=== PATIENT | male | born 1970 | race Caucasian/White ===

== ENCOUNTER 2024-02-23 18:08 | Inpatient (IN) | payer OTHER ==
[2024-02-23] MEDS ORDERED: ACETAMINOPHEN INJECTION 100 ML IVPB ONE (19:32)
[2024-02-23 19:38] LABS: VENOUS BASE EXCESS -5.7 mmol/L (-2-2); VENOUS PCO2 30.9 mmHg (38-52); VENOUS PH 7.393 (7.310-7.410)
[2024-02-23] MEDS: SODIUM CHLORIDE 0.9% 1000 ML INFUS.BAG IV STA (19:39)
[2024-02-23] MEDS: ACETAMINOPHEN 1000 MG/100 ML BAG IVPB ONE (19:47)
[2024-02-23 19:51] LABS: HEMATOCRIT 24.6 % (35.4-49); HEMOGLOBIN 8.2 GM/dL (11.7-16.9); MCH 36.9 pg (25.7-33.7); MCHC 33.4 g/dl (32.0-35.9); MEAN CELL VOLUME 110.4 fl (80-96); MEAN PLT VOLUME 6.3 fl (7.5-11.1); PLATELET COUNT 156 10^3/uL (134-434); RBC 2.23 M/mm3 (4.00-5.60); RDW 16.3 % (11.9-15.9)
[2024-02-23 19:55] LABS: ADD RBC MORPHOLOGY YES
[2024-02-23 19:57] LABS: WHITE BLOOD COUNT 1.5 K/mm3 (4.0-10.0)
[2024-02-23 20:03] LABS: CALCIUM 7.6 mg/dL (8.5-10.1)
[2024-02-23 20:04] LABS: ALBUMIN 2.6 g/dl (3.4-5.0); BLOOD UREA NITROGEN 26.1 mg/dL (7-18)
[2024-02-23 20:07] LABS: CREATININE 2.3 mg/dL (0.55-1.3)
[2024-02-23 20:08] LABS: BILIRUBIN,TOTAL 0.6 mg/dL (0.2-1)
[2024-02-23 20:10] LABS: TOT PROT 5.3 g/dl (6.4-8.2)
[2024-02-23 20:13] LABS: LACTIC ACID 2.8 mmol/L (0.4-2.0)
[2024-02-23] MEDS ORDERED: PIPERACILLIN/TAZOB 4.5 GM 4.5 GM/100 ML BAG IVPB ONE (20:54)
[2024-02-23] MEDS: PIPERACILLIN/TAZOB 4.5 GM 4.5 GM in DEXTROSE 5%-WATER 100 ML IVPB ONE (21:00)
[2024-02-23] MEDS: SODIUM CHLORIDE 0.9% 1000 ML INFUS.BAG IV ONE (21:05)
[2024-02-23 21:40] LABS: ANISOCYTOSIS 1+; MACROCYTOSIS 2+; OVALOCYTE 1+; TEAR DROP CELLS 1+
[2024-02-23 21:44] LABS: TOXIC GRANULATION 1+
[2024-02-23] MEDS ORDERED: HEPARIN NA (PORCINE) 5,000 UNITS/ML 1ML VIAL ONE (22:33)
[2024-02-23] MEDS: HEPARIN NA (PORCINE) 5,000 UNITS/ML 1ML VIAL SQ SCH (22:48)
[2024-02-23 22:59] LABS: HEMATOCRIT 21.6 % (35.4-49); HEMOGLOBIN 7.1 GM/dL (11.7-16.9); MCH 36.4 pg (25.7-33.7); MCHC 33.1 g/dl (32.0-35.9); MEAN PLT VOLUME 7.1 fl (7.5-11.1); PLATELET COUNT 148 10^3/uL (134-434); RBC 1.96 M/mm3 (4.00-5.60); RDW 16.4 % (11.9-15.9)
[2024-02-23] MEDS: CHLORHEXIDINE GLUCONATE 4% CLEANSER FOR DECOLONIZATION TP SCH (23:00)
[2024-02-23] MEDS: MUPIROCIN 2% TOPICAL OINTMENT FOR DECOLONIZATION NS SCH (23:00)
[2024-02-23 23:22] VITALS: BMI 20.9
[2024-02-23 23:52] LABS: ANISOCYTOSIS 1+; MACROCYTOSIS 2+; OVALOCYTE 1+; TEAR DROP CELLS 1+; TOXIC GRANULATION 1+
[2024-02-24 01:44] LABS: URINE APPEARANCE CLEAR; URINE BILIRUBIN NEGATIVE (NEGATIVE); URINE COLOR YELLOW; URINE GLUCOSE (UA) NEGATIVE (NEGATIVE); URINE KETONE NEGATIVE (NEGATIVE); URINE LEUK ESTERASE NEGATIVE (NEGATIVE); URINE NITRITE NEGATIVE (NEGATIVE); URINE PROTEIN NEGATIVE (NEGATIVE); URINE UROBILINOGEN 0.2 mg/dL (0.2-1.0)
[2024-02-24] MEDS: LACTATED RINGERS SOLUTION 1,000 ML/1,000 ML INFUS.BAG IV ONE (03:38)
[2024-02-24] MEDS: PANTOPRAZOLE SODIUM 40 MG VIAL IVPUSH SCH (03:38)
[2024-02-24] MEDS: PIPERACILLIN/TAZOB 4.5 GM 4.5 GM in DEXTROSE 5%-WATER 100 ML IVPB SCH ×2 (05:51→17:51)
[2024-02-24] MEDS: ONDANSETRON 4 MG/2 ML VIAL IVPUSH PRN (06:03)
[2024-02-24 06:26] LABS: EPI CELLS 0.8 /uL (0-25.1); HYALINE CASTS 0.14 /uL (0-3.1); URINE BACTERIA 0.9 /uL (0-1359); URINE RBC 2.7 /uL (0-23.9); URINE WBC 2 /uL (0-25.8)
[2024-02-24 07:45] LABS: HEMATOCRIT 21.1 % (35.4-49); HEMOGLOBIN 7.1 GM/dL (11.7-16.9); MCHC 33.7 g/dl (32.0-35.9); MEAN CELL VOLUME 109.8 fl (80-96); MEAN PLT VOLUME 6.5 fl (7.5-11.1); PLATELET COUNT 130 10^3/uL (134-434); RBC 1.92 M/mm3 (4.00-5.60)
[2024-02-24 07:52] LABS: POTASSIUM 4.2 mmol/L (3.5-5.1)
[2024-02-24 07:53] LABS: CALCIUM 7.2 mg/dL (8.5-10.1); WHITE BLOOD COUNT 1.5 K/mm3 (4.0-10.0)
[2024-02-24 07:54] LABS: BLOOD UREA NITROGEN 21.6 mg/dL (7-18); MAGNESIUM 1.4 mg/dL (1.8-2.4)
[2024-02-24 07:57] LABS: CREATININE 1.9 mg/dL (0.55-1.3); PHOSPHOROUS 2.1 mg/dL (2.5-4.9)
[2024-02-24 07:59] LABS: BILIRUBIN,TOTAL 0.5 mg/dL (0.2-1); TOT PROT 4.6 g/dl (6.4-8.2)
[2024-02-24 08:07] LABS: ALBUMIN 2.1 g/dl (3.4-5.0)
[2024-02-24] MEDS: LACTATED RINGERS SOLUTION 1,000 ML/1,000 ML INFUS.BAG IV SCH (08:12)
[2024-02-24 08:44] LABS: ANISOCYTOSIS 1+; MACROCYTOSIS 1+
[2024-02-24] MEDS: LACTATED RINGERS SOLUTION 1000 ML INFUS.BAG IV ONE ×2 (10:37→14:17)
[2024-02-24] MEDS: ACETAMINOPHEN 1000 MG/100 ML BAG IVPB PRN (10:43)
[2024-02-24] MEDS: MAGNESIUM SULF 50% (8.12 MEQ/2 ML-1 GM VIAL) IVPB ONE (13:05)
[2024-02-24] MEDS: POTASSIUM PHOSPHATE 30 MM in DEXTROSE 5%-WATER - 500 ML IVPB ONE (13:10)
[2024-02-24] MEDS: LEVOTHYROXINE NA 25 MCG TABLET (FP) PO SCH (13:37)
[2024-02-24] MEDS: CALCITRIOL 0.25 MCG CAPSULE (FP) PO SCH (13:37)
[2024-02-24] MEDS: FOLIC ACID 1 MG TABLET (FP) PO SCH (13:37)
[2024-02-24] MEDS: SODIUM BICARBONATE 325 MG TABLET PO SCH (14:39)
[2024-02-24] MEDS: azaTHIOprine 50 MG TABLET PO SCH ×2 (14:39→14:46)
[2024-02-24] MEDS: predniSONE 5 MG TABLET (UD) PO SCH (14:48)
[2024-02-24 15:17] LABS: BASO % 0.2 % (0-2.0); EOS % 1.5 % (0-4.5); HEMATOCRIT 19.8 % (35.4-49); MCH 36.8 pg (25.7-33.7); MCHC 32.9 g/dl (32.0-35.9); MEAN CELL VOLUME 111.8 fl (80-96); MEAN PLT VOLUME 6.4 fl (7.5-11.1); MONO % 15.9 % (3.8-10.2); NEUT % 60.4 % (42.8-82.8); PLATELET COUNT 122 10^3/uL (134-434); RBC 1.77 M/mm3 (4.00-5.60); RDW 17.1 % (11.9-15.9)
[2024-02-24 15:21] LABS: WHITE BLOOD COUNT 1.6 K/mm3 (4.0-10.0)
[2024-02-24 15:22] LABS: HEMOGLOBIN 6.5 GM/dL (11.7-16.9)
[2024-02-24 16:16] LABS: ANISOCYTOSIS 0; MACROCYTOSIS 3+
[2024-02-24] MEDS: ACETAMINOPHEN 325 MG TABLET (FP) PO PRN (17:43)
[2024-02-24] MEDS: AMINO ACIDS 4.25%/D5W 1,000 ML IV SCH (23:25)
[2024-02-25 06:38] LABS: BASO % 0.3 % (0-2.0); EOS % 1.5 % (0-4.5); HEMATOCRIT 28.4 % (35.4-49); HEMOGLOBIN 9.6 GM/dL (11.7-16.9); LYMPH % 17.5 % (8-40); MCHC 33.9 g/dl (32.0-35.9); MEAN PLT VOLUME 6.4 fl (7.5-11.1); NEUT % 64.7 % (42.8-82.8); PLATELET COUNT 140 10^3/uL (134-434); RBC 2.83 M/mm3 (4.00-5.60); RDW 22.8 % (11.9-15.9)
[2024-02-25 06:56] LABS: MEAN CELL VOLUME 100.3 fl (80-96)
[2024-02-25 07:28] LABS: POTASSIUM 4.2 mmol/L (3.5-5.1)
[2024-02-25 07:32] LABS: CALCIUM 7.8 mg/dL (8.5-10.1)
[2024-02-25 07:33] LABS: ALBUMIN 2.1 g/dl (3.4-5.0); BLOOD UREA NITROGEN 18.6 mg/dL (7-18); MAGNESIUM 2.2 mg/dL (1.8-2.4)
[2024-02-25 07:35] LABS: CREATININE 1.9 mg/dL (0.55-1.3)
[2024-02-25 07:36] LABS: PHOSPHOROUS 3.2 mg/dL (2.5-4.9)
[2024-02-25 07:37] LABS: BILIRUBIN,TOTAL 1.8 mg/dL (0.2-1); TOT PROT 4.6 g/dl (6.4-8.2)
[2024-02-26 06:57] LABS: POTASSIUM 4.1 mmol/L (3.5-5.1)
[2024-02-26 07:03] LABS: ALBUMIN 2.1 g/dl (3.4-5.0)
[2024-02-26 07:04] LABS: BLOOD UREA NITROGEN 22.8 mg/dL (7-18); MAGNESIUM 1.7 mg/dL (1.8-2.4)
[2024-02-26 07:07] LABS: CREATININE 1.8 mg/dL (0.55-1.3)
[2024-02-26 07:08] LABS: BILIRUBIN,TOTAL 0.7 mg/dL (0.2-1)
[2024-02-26 07:37] LABS: BASO % 0.2 % (0-2.0); EOS % 3.5 % (0-4.5); HEMATOCRIT 29.6 % (35.4-49); HEMOGLOBIN 9.9 GM/dL (11.7-16.9); LYMPH % 28.7 % (8-40); MCHC 33.6 g/dl (32.0-35.9); MEAN PLT VOLUME 6.7 fl (7.5-11.1); MONO % 16.8 % (3.8-10.2); NEUT % 50.8 % (42.8-82.8); PLATELET COUNT 157 10^3/uL (134-434); RBC 2.93 M/mm3 (4.00-5.60); RDW 23.5 % (11.9-15.9); WHITE BLOOD COUNT 2.8 K/mm3 (4.0-10.0)
[2024-02-26] MEDS: MAGNESIUM 2GM/50ML STERILE WATER IVPB IVPB ONE (14:20)
[2024-02-27 07:22] LABS: BASO % 0.3 % (0-2.0); HEMATOCRIT 30.2 % (35.4-49); HEMOGLOBIN 10.1 GM/dL (11.7-16.9); LYMPH % 35.5 % (8-40); MCHC 33.3 g/dl (32.0-35.9); MEAN CELL VOLUME 102.1 fl (80-96); MEAN PLT VOLUME 7.3 fl (7.5-11.1); MONO % 18.6 % (3.8-10.2); NEUT % 42.6 % (42.8-82.8); PLATELET COUNT 169 10^3/uL (134-434); RBC 2.96 M/mm3 (4.00-5.60); RDW 23.8 % (11.9-15.9); WHITE BLOOD COUNT 2.3 K/mm3 (4.0-10.0)
[2024-02-27 07:32] LABS: POTASSIUM 3.9 mmol/L (3.5-5.1)
[2024-02-27 07:42] LABS: ALBUMIN 2.2 g/dl (3.4-5.0); CALCIUM 8.4 mg/dL (8.5-10.1)
[2024-02-27 07:46] LABS: CREATININE 1.8 mg/dL (0.55-1.3)
[2024-02-27 07:47] LABS: BILIRUBIN,TOTAL 0.5 mg/dL (0.2-1); TOT PROT 5.1 g/dl (6.4-8.2)
[2024-02-27 09:41] LABS: ANISOCYTOSIS 0; MACROCYTOSIS 0; OVALOCYTE 1+
[2024-02-28] MEDS ORDERED: ACETAMINOPHEN 325 MG TABLET (FP) PO PRN (02:15)
[2024-02-28] MEDS: LEVOTHYROXINE NA 25 MCG TABLET (FP) PO SCH (06:21)
[2024-02-28 07:29] LABS: BASO % 0.5 % (0-2.0); EOS % 2.5 % (0-4.5); HEMATOCRIT 30.5 % (35.4-49); HEMOGLOBIN 10.3 GM/dL (11.7-16.9); LYMPH % 32.1 % (8-40); MCHC 33.6 g/dl (32.0-35.9); MEAN CELL VOLUME 101.3 fl (80-96); MEAN PLT VOLUME 6.7 fl (7.5-11.1); MONO % 17.1 % (3.8-10.2); NEUT % 47.8 % (42.8-82.8); PLATELET COUNT 174 10^3/uL (134-434); RBC 3.01 M/mm3 (4.00-5.60); RDW 22.8 % (11.9-15.9); WHITE BLOOD COUNT 3.3 K/mm3 (4.0-10.0)
[2024-02-28 07:50] LABS: POTASSIUM 4.4 mmol/L (3.5-5.1)
[2024-02-28 07:56] LABS: ALBUMIN 2.4 g/dl (3.4-5.0); BLOOD UREA NITROGEN 14.4 mg/dL (7-18); MAGNESIUM 1.7 mg/dL (1.8-2.4)
[2024-02-28 07:59] LABS: CREATININE 2.1 mg/dL (0.55-1.3)
[2024-02-28 08:00] LABS: BILIRUBIN,TOTAL 0.6 mg/dL (0.2-1)
[2024-02-28 08:01] LABS: TOT PROT 5.4 g/dl (6.4-8.2)
[2024-02-28] MEDS: CALCITRIOL 0.25 MCG CAPSULE (FP) PO SCH (09:04)
[2024-02-28] MEDS: SODIUM BICARBONATE 325 MG TABLET PO SCH (09:05)
[2024-02-28] MEDS: FOLIC ACID 1 MG TABLET (FP) PO SCH (09:05)
[2024-02-28] MEDS: PIPERACILLIN/TAZOB 4.5 GM 4.5 GM in DEXTROSE 5%-WATER 100 ML IVPB SCH (09:05)
[2024-02-28] MEDS: predniSONE 5 MG TABLET (UD) PO SCH (09:05)
[2024-02-28] MEDS: MUPIROCIN 2% TOPICAL OINTMENT FOR DECOLONIZATION NS SCH (09:08)
[2024-02-28] MEDS: SODIUM CHLORIDE 0.45% 1,000 ML IV SCH (16:00)
[2024-02-28] MEDS: CHLORHEXIDINE GLUCONATE 4% CLEANSER FOR DECOLONIZATION TP SCH (23:00)
[2024-02-29 07:36] LABS: POTASSIUM 4.1 mmol/L (3.5-5.1)
[2024-02-29 07:39] LABS: CALCIUM 9.4 mg/dL (8.5-10.1)
[2024-02-29 07:40] LABS: ALBUMIN 2.5 g/dl (3.4-5.0); BLOOD UREA NITROGEN 11.9 mg/dL (7-18)
[2024-02-29 07:43] LABS: CREATININE 1.8 mg/dL (0.55-1.3)
[2024-02-29 07:44] LABS: TOT PROT 5.4 g/dl (6.4-8.2)
[2024-02-29 07:45] LABS: BILIRUBIN,TOTAL 0.3 mg/dL (0.2-1)
[2024-03-01 07:18] LABS: BASO % 0.5 % (0-2.0); EOS % 1.4 % (0-4.5); HEMATOCRIT 27.7 % (35.4-49); HEMOGLOBIN 9.6 GM/dL (11.7-16.9); LYMPH % 22.7 % (8-40); MCH 34.5 pg (25.7-33.7); MCHC 34.6 g/dl (32.0-35.9); MEAN CELL VOLUME 99.8 fl (80-96); MEAN PLT VOLUME 7.1 fl (7.5-11.1); NEUT % 61.4 % (42.8-82.8); PLATELET COUNT 169 10^3/uL (134-434); RBC 2.78 M/mm3 (4.00-5.60); RDW 20.7 % (11.9-15.9); WHITE BLOOD COUNT 5.3 K/mm3 (4.0-10.0)
[2024-03-01 07:27] LABS: CALCIUM 9.1 mg/dL (8.5-10.1)
[2024-03-01 07:28] LABS: ALBUMIN 2.2 g/dl (3.4-5.0); BLOOD UREA NITROGEN 12.5 mg/dL (7-18)
[2024-03-01 07:31] LABS: CREATININE 1.5 mg/dL (0.55-1.3)
[2024-03-01 07:32] LABS: BILIRUBIN,TOTAL 0.4 mg/dL (0.2-1); TOT PROT 5.1 g/dl (6.4-8.2)
[2024-03-01 16:11] VITALS: BP 115/69; PULSE 64; RESP 17; TEMP 98.2
== END 2024-03-01 18:20 | disposition home or self-care (01) | DRG 720 ==
LOC: JER 18:08 → JERBED 19:37 → JICU 23:09 → J2W 02-27 23:36
PROVIDERS: ADMIT Internal Medicine; ATTEND Internal Medicine
PROC: 30233N1 Transfusion of Nonautologous Red Blood Cells into Peripheral Vein, Percutaneous Approach (ICD-10-PCS; principal; 2024-02-24)
DX: A41.89 Other specified sepsis (principal); N17.9 Acute kidney failure, unspecified; K50.90 Crohn's disease, unspecified, without complications; E03.9 Hypothyroidism, unspecified; K92.1 Melena; R50.9 Fever, unspecified; R00.0 Tachycardia, unspecified; D72.819 Decreased white blood cell count, unspecified; A09 Infectious gastroenteritis and colitis, unspecified; D64.9 Anemia, unspecified; N18.9 Chronic kidney disease, unspecified
CPT/HCPCS: 0241U-QW; 36415; 36430; 71045-TC-FY; 76775-TC; 80053; 81003; 82272; 82308; 82542; 82803; 83605; 83735; 84100; 84484; 85025; 85730; 86140; 86480; 86644; 86645; 86850; 86900; 86901; 86922; 87040; 87045; 87046; 87086; 87207; 87324; 87328; 87329; 87449; 93005; 93010; 99291; G0480; J0131; J1644; P9038; P9058

== ENCOUNTER 2024-03-15 14:29 | Inpatient (IN) | payer OTHER ==
[2024-03-15 14:43] VITALS: BMI 21.1
[2024-03-15 16:46] LABS: BASO % 0.4 % (0-2.0); EOS % 0.7 % (0-4.5); HEMATOCRIT 26.5 % (35.4-49); HEMOGLOBIN 8.8 GM/dL (11.7-16.9); LYMPH % 21.4 % (8-40); MCH 34.6 pg (25.7-33.7); MCHC 33.1 g/dl (32.0-35.9); MEAN CELL VOLUME 104.7 fl (80-96); MEAN PLT VOLUME 7.2 fl (7.5-11.1); MONO % 11.7 % (3.8-10.2); NEUT % 65.8 % (42.8-82.8); PLATELET COUNT 159 10^3/uL (134-434); RBC 2.54 M/mm3 (4.00-5.60); RDW 20.7 % (11.9-15.9); WHITE BLOOD COUNT 3.9 K/mm3 (4.0-10.0)
[2024-03-15 17:11] LABS: POTASSIUM 4.2 mmol/L (3.5-5.1)
[2024-03-15 17:14] LABS: BLOOD UREA NITROGEN 16.9 mg/dL (7-18); CALCIUM 8.3 mg/dL (8.5-10.1)
[2024-03-15 17:15] LABS: ALBUMIN 2.9 g/dl (3.4-5.0)
[2024-03-15 17:18] LABS: BILIRUBIN,TOTAL 0.3 mg/dL (0.2-1); CREATININE 1.9 mg/dL (0.55-1.3); TOT PROT 6.5 g/dl (6.4-8.2)
[2024-03-15] MEDS ORDERED: ACETAMINOPHEN INJECTION 100 ML IVPB ONE (17:53)
[2024-03-15] MEDS: ACETAMINOPHEN 1000 MG/100 ML BAG IVPB ONE (18:16)
[2024-03-15] MEDS: SODIUM CHLORIDE 0.9% 500 ML INFUS.BAG IV ONE (18:16)
[2024-03-15 18:47] LABS: INR 1.18 (0.83-1.09); PROTHROMBIN TIME (PATIENT) 13.3 SEC (9.7-13.0)
[2024-03-15 18:50] LABS: ACTIVATED PTT 27.5 SECONDS (25.2-36.5)
[2024-03-15 19:05] LABS: ANISOCYTOSIS 2+; MACROCYTOSIS 1+; OVALOCYTE 1+
[2024-03-15] MEDS ORDERED: ACETAMINOPHEN 325 MG TABLET (FP) PO PRN (20:34)
[2024-03-16 01:26] LABS: HEMATOCRIT 25.4 % (35.4-49); HEMOGLOBIN 8.4 GM/dL (11.7-16.9); MCH 33.5 pg (25.7-33.7); MCHC 32.9 g/dl (32.0-35.9); MEAN CELL VOLUME 101.8 fl (80-96); MEAN PLT VOLUME 6.3 fl (7.5-11.1); PLATELET COUNT 107 10^3/uL (134-434); WHITE BLOOD COUNT 3.3 K/mm3 (4.0-10.0)
[2024-03-16] MEDS: SODIUM CHLORIDE 0.45% 1,000 ML IV SCH (03:00)
[2024-03-16 04:23] LABS: BASO % 1.1 % (0-2.0); EOS % 2.3 % (0-4.5); HEMATOCRIT 24.9 % (35.4-49); HEMOGLOBIN 8.3 GM/dL (11.7-16.9); LYMPH % 23.8 % (8-40); MCH 33.8 pg (25.7-33.7); MCHC 33.5 g/dl (32.0-35.9); MEAN CELL VOLUME 100.8 fl (80-96); MEAN PLT VOLUME 6.6 fl (7.5-11.1); MONO % 12.8 % (3.8-10.2); PLATELET COUNT 115 10^3/uL (134-434); RBC 2.47 M/mm3 (4.00-5.60)
[2024-03-16 06:24] LABS: BASO % 0.3 % (0-2.0); EOS % 2.3 % (0-4.5); HEMATOCRIT 25.5 % (35.4-49); HEMOGLOBIN 8.6 GM/dL (11.7-16.9); LYMPH % 21.6 % (8-40); MCH 33.8 pg (25.7-33.7); MCHC 33.5 g/dl (32.0-35.9); MEAN CELL VOLUME 100.8 fl (80-96); MEAN PLT VOLUME 6.7 fl (7.5-11.1); MONO % 11.1 % (3.8-10.2); NEUT % 64.7 % (42.8-82.8); PLATELET COUNT 110 10^3/uL (134-434); RBC 2.53 M/mm3 (4.00-5.60); RDW 20.1 % (11.9-15.9); WHITE BLOOD COUNT 3.1 K/mm3 (4.0-10.0)
[2024-03-16 06:43] LABS: POTASSIUM 3.8 mmol/L (3.5-5.1)
[2024-03-16 06:46] LABS: BLOOD UREA NITROGEN 14.7 mg/dL (7-18); CALCIUM 7.6 mg/dL (8.5-10.1); MAGNESIUM 1.3 mg/dL (1.8-2.4)
[2024-03-16 06:48] LABS: PHOSPHOROUS 2.3 mg/dL (2.5-4.9)
[2024-03-16 06:50] LABS: CREATININE 1.4 mg/dL (0.55-1.3)
[2024-03-16] MEDS ORDERED: LEVOTHYROXINE NA 25 MCG TABLET (FP) ONE (07:38)
[2024-03-16] MEDS: LEVOTHYROXINE NA 25 MCG TABLET (FP) PO SCH (07:45)
[2024-03-16] MEDS ORDERED: FOLIC ACID 1 MG TABLET (FP) ONE (09:11)
[2024-03-16] MEDS: CALCITRIOL 0.25 MCG CAPSULE (FP) PO SCH (09:17)
[2024-03-16] MEDS: FOLIC ACID 1 MG TABLET (FP) PO SCH (09:17)
[2024-03-16] MEDS: azaTHIOprine 50 MG TABLET PO SCH (09:17)
[2024-03-16] MEDS: predniSONE 5 MG TABLET (UD) PO SCH (09:17)
[2024-03-16] MEDS: SODIUM BICARBONATE 325 MG TABLET PO SCH (10:37)
[2024-03-16] MEDS ORDERED: ACETAMINOPHEN INJECTION 100 ML IVPB ONE (15:27)
[2024-03-16] MEDS: ACETAMINOPHEN 1000 MG/100 ML BAG IVPB PRN (15:30)
[2024-03-17 07:48] LABS: BASO % 0.4 % (0-2.0); EOS % 1.9 % (0-4.5); HEMATOCRIT 28.7 % (35.4-49); HEMOGLOBIN 9.6 GM/dL (11.7-16.9); MCH 34.7 pg (25.7-33.7); MCHC 33.6 g/dl (32.0-35.9); MEAN CELL VOLUME 103.2 fl (80-96); MEAN PLT VOLUME 7.1 fl (7.5-11.1); MONO % 12.6 % (3.8-10.2); NEUT % 61.1 % (42.8-82.8); PLATELET COUNT 115 10^3/uL (134-434); RBC 2.78 M/mm3 (4.00-5.60); RDW 20.6 % (11.9-15.9); WHITE BLOOD COUNT 3.5 K/mm3 (4.0-10.0)
[2024-03-17 07:58] LABS: POTASSIUM 4.3 mmol/L (3.5-5.1)
[2024-03-17 08:02] LABS: ALBUMIN 2.4 g/dl (3.4-5.0); CALCIUM 7.6 mg/dL (8.5-10.1)
[2024-03-17 08:03] LABS: BLOOD UREA NITROGEN 14.1 mg/dL (7-18)
[2024-03-17 08:05] LABS: CREATININE 1.5 mg/dL (0.55-1.3)
[2024-03-17 08:07] LABS: BILIRUBIN,TOTAL 0.8 mg/dL (0.2-1); TOT PROT 5.5 g/dl (6.4-8.2)
[2024-03-17] MEDS ORDERED: ACETAMINOPHEN 1000 MG/100 ML BAG IVPB PRN (15:17)
[2024-03-18 10:53] LABS: HEMATOCRIT 24.1 % (35.4-49); HEMOGLOBIN 8.1 GM/dL (11.7-16.9); MCH 34.3 pg (25.7-33.7); MCHC 33.8 g/dl (32.0-35.9); MEAN CELL VOLUME 101.5 fl (80-96); MEAN PLT VOLUME 6.6 fl (7.5-11.1); PLATELET COUNT 103 10^3/uL (134-434); RBC 2.38 M/mm3 (4.00-5.60); RDW 20.6 % (11.9-15.9)
[2024-03-18 11:00] LABS: WHITE BLOOD COUNT 1.6 K/mm3 (4.0-10.0)
[2024-03-18 11:10] LABS: POTASSIUM 3.6 mmol/L (3.5-5.1)
[2024-03-18 11:12] LABS: ALBUMIN 2.1 g/dl (3.4-5.0); BLOOD UREA NITROGEN 12.8 mg/dL (7-18); CALCIUM 7.4 mg/dL (8.5-10.1); MAGNESIUM 1.5 mg/dL (1.8-2.4)
[2024-03-18 11:15] LABS: CREATININE 1.5 mg/dL (0.55-1.3); PHOSPHOROUS 1.9 mg/dL (2.5-4.9)
[2024-03-18 11:17] LABS: BILIRUBIN,TOTAL 0.4 mg/dL (0.2-1); TOT PROT 4.7 g/dl (6.4-8.2)
[2024-03-18 12:20] LABS: ANISOCYTOSIS 1+; MACROCYTOSIS 1+
[2024-03-18] MEDS: PEGFILGRASTIM (NEULASTA) 6 MG/0.6 ML DISP.SYRIN SQ ONE (15:11)
[2024-03-18] MEDS: MAGNESIUM OXIDE 400 MG TABLET (FP) PO SCH (15:42)
[2024-03-18] MEDS: TBO-FILGRASTIM 300 MCG/0.5 ML DISP.SYRINGE SQ ONE (15:42)
[2024-03-19 08:14] LABS: WHITE BLOOD COUNT 6.4 K/mm3 (4.0-10.0)
[2024-03-19 08:15] LABS: BASO % 0.6 % (0-2.0); EOS % 1.5 % (0-4.5); HEMATOCRIT 30.1 % (35.4-49); HEMOGLOBIN 10.1 GM/dL (11.7-16.9); LYMPH % 17.6 % (8-40); MCH 34.9 pg (25.7-33.7); MCHC 33.6 g/dl (32.0-35.9); MEAN CELL VOLUME 103.8 fl (80-96); MONO % 8.9 % (3.8-10.2); NEUT % 71.4 % (42.8-82.8); PLATELET COUNT 141 10^3/uL (134-434); RDW 21.3 % (11.9-15.9)
[2024-03-19 08:20] LABS: POTASSIUM 3.2 mmol/L (3.5-5.1)
[2024-03-19 08:24] LABS: BLOOD UREA NITROGEN 12.9 mg/dL (7-18); CALCIUM 8.3 mg/dL (8.5-10.1)
[2024-03-19 08:27] LABS: CREATININE 1.7 mg/dL (0.55-1.3)
[2024-03-19 08:30] LABS: BILIRUBIN,TOTAL 0.7 mg/dL (0.2-1); TOT PROT 6.1 g/dl (6.4-8.2)
[2024-03-19 08:34] LABS: ALBUMIN 2.7 g/dl (3.4-5.0)
[2024-03-19] MEDS ORDERED: REGADENOSON 0.4 MG/5 ML PRE-FILLED SYRINGE IVPUSH ONE (09:05)
[2024-03-19 09:28] LABS: ANISOCYTOSIS 0; MACROCYTOSIS 1+; OVALOCYTE 1+
[2024-03-19] MEDS: REGADENOSON 0.4 MG/5 ML PRE-FILLED SYRINGE IVPUSH ONE (10:58)
[2024-03-19] MEDS: POTASSIUM CHLORIDE ORAL LIQUID 20 MEQ/15 ML PO ONE (12:00)
[2024-03-19] MEDS: KCL 10 MEQ IVPB 10 MEQ/100 ML INFUS.BAG IVPB SCH (12:00)
[2024-03-20 08:50] LABS: BASO % 0.3 % (0-2.0); EOS % 2.3 % (0-4.5); HEMATOCRIT 23.7 % (35.4-49); HEMOGLOBIN 7.9 GM/dL (11.7-16.9); LYMPH % 25.7 % (8-40); MCH 33.9 pg (25.7-33.7); MCHC 33.1 g/dl (32.0-35.9); MEAN CELL VOLUME 102.2 fl (80-96); MEAN PLT VOLUME 7.6 fl (7.5-11.1); MONO % 17.6 % (3.8-10.2); NEUT % 54.1 % (42.8-82.8); PLATELET COUNT 106 10^3/uL (134-434); RBC 2.32 M/mm3 (4.00-5.60); RDW 20.4 % (11.9-15.9)
[2024-03-20 09:24] LABS: BLOOD UREA NITROGEN 14.2 mg/dL (7-18); CALCIUM 7.9 mg/dL (8.5-10.1)
[2024-03-20 09:25] LABS: BILIRUBIN,TOTAL 0.3 mg/dL (0.2-1)
[2024-03-20 09:27] LABS: CREATININE 1.5 mg/dL (0.55-1.3)
[2024-03-20 09:29] LABS: ALBUMIN 2.1 g/dl (3.4-5.0)
[2024-03-21 07:52] LABS: BASO % 0.4 % (0-2.0); EOS % 2.5 % (0-4.5); HEMOGLOBIN 9.1 GM/dL (11.7-16.9); LYMPH % 30.4 % (8-40); MCH 33.5 pg (25.7-33.7); MCHC 33.5 g/dl (32.0-35.9); MEAN CELL VOLUME 99.9 fl (80-96); MEAN PLT VOLUME 7.1 fl (7.5-11.1); MONO % 16.1 % (3.8-10.2); NEUT % 50.6 % (42.8-82.8); PLATELET COUNT 113 10^3/uL (134-434); RBC 2.71 M/mm3 (4.00-5.60); RDW 20.4 % (11.9-15.9); WHITE BLOOD COUNT 3.1 K/mm3 (4.0-10.0)
[2024-03-21 08:17] LABS: POTASSIUM 3.8 mmol/L (3.5-5.1)
[2024-03-21 08:25] LABS: CALCIUM 8.3 mg/dL (8.5-10.1)
[2024-03-21 08:26] LABS: ALBUMIN 2.1 g/dl (3.4-5.0); BLOOD UREA NITROGEN 14.1 mg/dL (7-18)
[2024-03-21 08:29] LABS: BILIRUBIN,TOTAL 0.8 mg/dL (0.2-1); CREATININE 1.4 mg/dL (0.55-1.3)
[2024-03-21 08:31] LABS: TOT PROT 5.3 g/dl (6.4-8.2)
[2024-03-22 11:04] VITALS: BP 83/53; PULSE 76; RESP 18; TEMP 98.4
== END 2024-03-22 11:54 | disposition home or self-care (01) | DRG 660 ==
LOC: JER 14:29 → JERBED 20:34 → J4W 03-16 20:11 → OBSVTOIN 03-20 14:49
PROVIDERS: ADMIT Internal Medicine; ATTEND Internal Medicine
PROC: 30233N1 Transfusion of Nonautologous Red Blood Cells into Peripheral Vein, Percutaneous Approach (ICD-10-PCS; principal; 2024-03-21)
DX: D61.818 Other pancytopenia (principal); D64.9 Anemia, unspecified; N17.9 Acute kidney failure, unspecified; E03.9 Hypothyroidism, unspecified; D70.9 Neutropenia, unspecified; K50.90 Crohn's disease, unspecified, without complications; R07.89 Other chest pain; T45.1X5A Adverse effect of antineoplastic and immunosuppressive drugs, initial encounter; N18.9 Chronic kidney disease, unspecified; R42 Dizziness and giddiness; Z86.718 Personal history of other venous thrombosis and embolism
CPT/HCPCS: 36415; 36430; 71045-TC-FY; 78452-TC; 80048; 80053; 82272; 83735; 84100; 84484; 85025; 85027; 85610; 85730; 86850; 86900; 86901; 86922; 93005; 93010; 93017; 93306-TC; 93970-TC; 99285-25; A9502; G0378; J0131; J1447; J2785; P9038; P9058

== ENCOUNTER 2024-05-31 10:35 | Emergency (ER) | payer OTHER ==
[2024-05-31 10:53] VITALS: BMI 21.1
[2024-05-31 12:29] LABS: EOS % 1.4 % (0-4.5); HEMATOCRIT 20.8 % (35.4-49); LYMPH % 26.5 % (8-40); MCH 32.3 pg (25.7-33.7); MCHC 30.1 g/dl (32.0-35.9); MEAN CELL VOLUME 107.6 fl (80-96); MEAN PLT VOLUME 7.2 fl (7.5-11.1); MONO % 18.8 % (3.8-10.2); NEUT % 52.3 % (42.8-82.8); PLATELET COUNT 177 10^3/uL (134-434); RBC 1.94 M/mm3 (4.00-5.60); RDW 17.5 % (11.9-15.9); WHITE BLOOD COUNT 2.3 K/mm3 (4.0-10.0)
[2024-05-31 12:32] LABS: HEMOGLOBIN 6.3 GM/dL (11.7-16.9)
[2024-05-31 12:35] LABS: POTASSIUM 3.6 mmol/L (3.5-5.1)
[2024-05-31 12:37] LABS: CALCIUM 8.2 mg/dL (8.5-10.1)
[2024-05-31 12:38] LABS: ALBUMIN 2.5 g/dl (3.4-5.0)
[2024-05-31 12:40] LABS: CREATININE 1.8 mg/dL (0.55-1.3)
[2024-05-31 12:42] LABS: BILIRUBIN,TOTAL 0.2 mg/dL (0.2-1); TOT PROT 5.9 g/dl (6.4-8.2)
[2024-05-31 12:42] LABS: ACTIVATED PTT 28.4 SECONDS (25.2-36.5); INR 1.17 (0.83-1.09); PROTHROMBIN TIME (PATIENT) 13.4 SEC (9.7-13.0)
[2024-05-31 13:18] LABS: ANISOCYTOSIS 1+; MACROCYTOSIS 1+
[2024-05-31 13:31] LABS: HIV INTERPRETATION NEGATIVE (NEGATIVE)
[2024-05-31 17:19] VITALS: BP 104/74; PULSE 79; RESP 16; TEMP 98.1
== END 2024-05-31 19:21 | disposition home or self-care (01) ==
LOC: JER 10:35
DX: K50.918 Crohn's disease, unspecified, with other complication (principal); D63.8 Anemia in other chronic diseases classified elsewhere
CPT/HCPCS: 36415; 36430; 80053; 83540; 85025; 85610; 85730; 86803; 86850; 86900; 86901; 86922; 87389; 93005; 93010; 99285-25; P9058

== ENCOUNTER 2024-06-25 16:44 | Observation (INO) | payer OTHER ==
[2024-06-25 17:19] VITALS: BMI 20.4
[2024-06-25 18:27] LABS: BASO % 0.4 % (0-2.0); HEMATOCRIT 22.1 % (35.4-49); HEMOGLOBIN 6.7 GM/dL (11.7-16.9); LYMPH % 14.2 % (8-40); MCHC 30.2 g/dl (32.0-35.9); MEAN CELL VOLUME 102.5 fl (80-96); MONO % 12.7 % (3.8-10.2); NEUT % 71.7 % (42.8-82.8); PLATELET COUNT 188 10^3/uL (134-434); RBC 2.16 M/mm3 (4.00-5.60); RDW 19.5 % (11.9-15.9); WHITE BLOOD COUNT 2.7 K/mm3 (4.0-10.0)
[2024-06-25 18:41] LABS: POTASSIUM 4.5 mmol/L (3.5-5.1)
[2024-06-25 18:45] LABS: CALCIUM 8.6 mg/dL (8.5-10.1)
[2024-06-25 18:46] LABS: ALBUMIN 2.5 g/dl (3.4-5.0); BLOOD UREA NITROGEN 18.4 mg/dL (7-18)
[2024-06-25 18:49] LABS: CREATININE 2.2 mg/dL (0.55-1.3)
[2024-06-25 18:50] LABS: BILIRUBIN,TOTAL 0.1 mg/dL (0.2-1)
[2024-06-25 19:00] LABS: INR 1.25 (0.83-1.09); PROTHROMBIN TIME (PATIENT) 14.3 SEC (9.7-13.0)
[2024-06-25 19:37] LABS: HIV INTERPRETATION NEGATIVE (NEGATIVE)
[2024-06-25] MEDS: ACETAMINOPHEN 325 MG TABLET (FP) PO ONE (21:24)
[2024-06-26 07:48] LABS: BASO % 0.5 % (0-2.0); EOS % 1.8 % (0-4.5); HEMOGLOBIN 7.1 GM/dL (11.7-16.9); LYMPH % 21.4 % (8-40); MCH 30.9 pg (25.7-33.7); MEAN CELL VOLUME 99.8 fl (80-96); MEAN PLT VOLUME 7.6 fl (7.5-11.1); MONO % 14.2 % (3.8-10.2); NEUT % 62.1 % (42.8-82.8); PLATELET COUNT 159 10^3/uL (134-434); RBC 2.31 M/mm3 (4.00-5.60); RDW 20.8 % (11.9-15.9)
[2024-06-26] MEDS: LEVOTHYROXINE NA 25 MCG TABLET (FP) PO SCH (08:11)
[2024-06-26 09:05] LABS: BLOOD UREA NITROGEN 20.7 mg/dL (7-18); CALCIUM 8.2 mg/dL (8.5-10.1); POTASSIUM 4.2 mmol/L (3.5-5.1)
[2024-06-26] MEDS: CALCITRIOL 0.25 MCG CAPSULE (FP) PO SCH (09:26)
[2024-06-26 09:33] LABS: ANISOCYTOSIS 1+; MACROCYTOSIS 1+
[2024-06-26] MEDS ORDERED: ACETAMINOPHEN 325 MG TABLET (FP) ONE (12:36)
[2024-06-26] MEDS: ACETAMINOPHEN 325 MG TABLET (FP) PO PRN (12:44)
[2024-06-26 16:11] LABS: MAGNESIUM 1.7 mg/dL (1.8-2.4)
[2024-06-26 16:14] LABS: PHOSPHOROUS 2.8 mg/dL (2.5-4.9)
[2024-06-26 16:18] LABS: N-TERMINAL BNP 28.8 pg/ml (5-125)
[2024-06-26] MEDS: DEXTROSE 5%-0.45% SALINE 1,000 ML IV SCH (18:18)
[2024-06-26 20:17] LABS: BASO % 0.8 % (0-2.0); EOS % 2.5 % (0-4.5); HEMATOCRIT 26.6 % (35.4-49); HEMOGLOBIN 8.7 GM/dL (11.7-16.9); LYMPH % 21.6 % (8-40); MCH 31.1 pg (25.7-33.7); MCHC 32.6 g/dl (32.0-35.9); MEAN CELL VOLUME 95.6 fl (80-96); MEAN PLT VOLUME 8.1 fl (7.5-11.1); NEUT % 56.1 % (42.8-82.8); PLATELET COUNT 168 10^3/uL (134-434); RBC 2.79 M/mm3 (4.00-5.60); WHITE BLOOD COUNT 3.4 K/mm3 (4.0-10.0)
[2024-06-27] MEDS ORDERED: ACETAMINOPHEN 325 MG TABLET (FP) ONE (00:45)
[2024-06-27 06:31] LABS: BASO % 0.6 % (0-2.0); EOS % 2.9 % (0-4.5); HEMATOCRIT 27.8 % (35.4-49); LYMPH % 26.4 % (8-40); MCH 31.1 pg (25.7-33.7); MCHC 32.4 g/dl (32.0-35.9); MEAN CELL VOLUME 96.2 fl (80-96); MONO % 18.5 % (3.8-10.2); NEUT % 51.6 % (42.8-82.8); PLATELET COUNT 149 10^3/uL (134-434); RBC 2.89 M/mm3 (4.00-5.60); RDW 19.1 % (11.9-15.9); WHITE BLOOD COUNT 3.2 K/mm3 (4.0-10.0)
[2024-06-27] MEDS ORDERED: LEVOTHYROXINE NA 25 MCG TABLET (FP) ONE (06:34)
[2024-06-27 06:49] LABS: POTASSIUM 4.1 mmol/L (3.5-5.1)
[2024-06-27 06:53] LABS: ALBUMIN 2.3 g/dl (3.4-5.0); CALCIUM 8.1 mg/dL (8.5-10.1)
[2024-06-27 06:57] LABS: CREATININE 1.8 mg/dL (0.55-1.3)
[2024-06-27 06:58] LABS: BILIRUBIN,TOTAL 0.7 mg/dL (0.2-1); TOT PROT 5.2 g/dl (6.4-8.2)
[2024-06-27 09:54] LABS: IRON SERUM 32 ug/dL (50-175); TOTAL IRON BINDING CAPACITY 242 ug/dL (250-450)
[2024-06-27] MEDS ORDERED: PANTOPRAZOLE SODIUM 40 MG VIAL ONE (10:42)
[2024-06-27] MEDS: PANTOPRAZOLE 40 MG TABLET PO SCH (10:51)
[2024-06-27 13:50] VITALS: RESP 18
[2024-06-27 17:19] VITALS: BP 99/65; PULSE 85; TEMP 99.5
== END 2024-06-27 17:40 | disposition home or self-care (01) ==
LOC: JER 16:44 → JERBED 22:23
PROVIDERS: ADMIT Internal Medicine; ATTEND Internal Medicine
PROC: 30233N1 Transfusion of Nonautologous Red Blood Cells into Peripheral Vein, Percutaneous Approach (ICD-10-PCS; principal; 2024-06-25)
PROC: 3E0337Z Introduction of Electrolytic and Water Balance Substance into Peripheral Vein, Percutaneous Approach (ICD-10-PCS; 2024-06-25)
DX: D64.9 Anemia, unspecified (principal); N17.9 Acute kidney failure, unspecified; K50.90 Crohn's disease, unspecified, without complications; R79.89 Other specified abnormal findings of blood chemistry; R55 Syncope and collapse; Z88.0 Allergy status to penicillin; E03.9 Hypothyroidism, unspecified; Z87.891 Personal history of nicotine dependence; Z86.718 Personal history of other venous thrombosis and embolism; K92.1 Melena
CPT/HCPCS: 36415; 36430; 70450-TC; 71045-TC-FY; 80048; 80053; 80061; 82728; 83036; 83540; 83550; 83735; 83880; 83993; 84100; 84443; 84484; 85025; 85379; 85610; 86140; 86803; 86922; 87389; 93005; 93010; 93970-TC; 96360; 99285-25; G0378; P9038; P9058